=== PATIENT | female | born 1985 | race Two or more races ===

== ENCOUNTER 2019-07-21 08:44 | Day surgery (SDC) | payer OTHER ==
[~2019-07-21] VITALS: Ht 137.2 cm; Wt 49.0 kg
[2019-07-21] MEDS ORDERED: fentaNYL 0.05 MG/ML VIAL ONE (10:02)
[2019-07-21] MEDS ORDERED: LIDOCAINE 2% 100 MG/5 ML UJET TP ONE (10:02)
[2019-07-21] MEDS ORDERED: MIDAZOLAM 2 MG/2 ML VIAL ONE ×3 (10:02→10:31)
[2019-07-21] MEDS ORDERED: NIFE10SG6 (10:04)
[2019-07-21] MEDS ORDERED: CLON0.1T42 PO (10:04)
[2019-07-21] MEDS ORDERED: LIFI1DRO LEFT EYE (10:04)
[2019-07-21] MEDS ORDERED: VALB40CA PO (10:04)
[2019-07-21] MEDS ORDERED: [UNRECOGNIZED DRUG - CODE] MC (10:04)
[2019-07-21] MEDS ORDERED: [UNRECOGNIZED DRUG - CODE] PO (10:04)
[2019-07-21] MEDS ORDERED: [UNRECOGNIZED DRUG - CODE] PO (10:04)
[2019-07-21] MEDS ORDERED: FLO44 IH (10:04)
[2019-07-21] MEDS ORDERED: PRED1TAB2 PO (10:04)
[2019-07-21] MEDS ORDERED: KETO5SOL OP (10:04)
[2019-07-21] MEDS ORDERED: ALEN70TA9 PO (10:04)
[2019-07-21] MEDS ORDERED: DIPH50CA69 PO (10:04)
[2019-07-21] MEDS ORDERED: TOPI15CA10 PO (10:04)
[2019-07-21] MEDS ORDERED: LAM25 PO (10:04)
[2019-07-21] MEDS ORDERED: ASPI-1822 PO (10:04)
[2019-07-21] MEDS ORDERED: ALBU0.0912 IH (10:04)
[2019-07-21] MEDS ORDERED: fentaNYL 0.05 MG/ML VIAL IVP ONE (10:15)
[2019-07-21] MEDS ORDERED: MIDAZOLAM 2 MG/2 ML VIAL IVP ONE (10:45)
[2019-07-21] MEDS ORDERED: fentaNYL 0.025 MG/HR PATCH TD SCH (10:45)
== END 2019-07-21 13:00 | disposition home or self-care (01) ==
LOC: MDS 08:44 → MMU 08:44 → MDS 13:00
PROVIDERS: ATTEND Internal Medicine Gastroenterology
DX: R19.7 Diarrhea, unspecified (principal); D12.5 Benign neoplasm of sigmoid colon; K29.70 Gastritis, unspecified, without bleeding; I73.00 Raynaud's syndrome without gangrene; Z80.0 Family history of malignant neoplasm of digestive organs; Z87.891 Personal history of nicotine dependence; K21.9 Gastro-esophageal reflux disease without esophagitis; J44.9 Chronic obstructive pulmonary disease, unspecified; M85.80 Other specified disorders of bone density and structure, unspecified site; M19.90 Unspecified osteoarthritis, unspecified site; Z98.890 Other specified postprocedural states; Z79.899 Other long term (current) drug therapy
CPT/HCPCS: 36415; 43239; 45380; 45385; 81025; 86677; J2250; J3010